=== PATIENT | female | born 1960 | race American Indian/Alaskan Native ===

== ENCOUNTER 2018-01-19 12:49 | Outpatient (CLI) | payer BC ==
--- NOTE | 2018-01-19 16:04 | XRay Report ---
FINAL REPORT EXAM: XR WRIST 3+V RT HISTORY: PAIN DUE TO FALL COMPARISON: None. TECHNIQUE: Two views of the right wrist FINDINGS: There is normal alignment without acute fracture or dislocation. The joint spaces are preserved. The overlying soft tissues are intact. IMPRESSION: No acute bony abnormality of the right wrist.
--- NOTE | 2018-01-19 16:07 | XRay Report ---
FINAL REPORT EXAM: XR HAND 3+V RT HISTORY: PAIN DUE TO FALL COMPARISON: None. TECHNIQUE: Three views of the right hand FINDINGS: There is normal alignment without acute fracture or dislocation. The joint spaces are preserved. The overlying soft tissues are intact. IMPRESSION: No acute bony abnormality of the right hand.
--- NOTE | 2018-01-19 16:25 | XRay Report ---
FINAL REPORT EXAM: XR FOOT 3+V RT HISTORY: PAIN DUE TO FALL COMPARISON: None. TECHNIQUE: Three views of the right foot FINDINGS: There is normal alignment without acute fracture or dislocation. There is mild hallux valgus deformity. The joint spaces are otherwise preserved. There is mild diffuse soft tissue swelling. IMPRESSION: No acute bony abnormality of the right foot. Mild hallux valgus deformity.
--- NOTE | 2018-01-19 17:13 | XRay Report ---
FINAL REPORT EXAM: XR KNEE 3V RT HISTORY: PAIN DUE TO FALL TECHNIQUE: 3 views of right knee. PRIORS: None. FINDINGS: Moderate medial and mild patellofemoral joint space narrowing and mild marginal spurring in all 3 joint compartments. No apparent fracture or dislocation. Soft tissues grossly unremarkable. IMPRESSION: 1. No acute osseous abnormality. 2. Degenerative changes.
== END 2018-01-19 12:50 | disposition home or self-care (01) ==
LOC: SPVIMAG 12:49
PROVIDERS: ATTEND Family Medicine Adult Medicine
DX: M17.11 Unilateral primary osteoarthritis, right knee (principal); M20.11 Hallux valgus (acquired), right foot; M25.531 Pain in right wrist; M79.641 Pain in right hand; W19.XXXA Unspecified fall, initial encounter

== ENCOUNTER 2018-12-03 14:10 | Outpatient (CLI) | payer BC ==
--- NOTE | 2018-12-03 15:40 | XRay Report ---
LEFT WRIST X-RAY, 3 VIEWS LEFT HAND X-RAY, 3 VIEWS INDICATION: Left wrist and hand pain. COMPARISON: None. IMPRESSION: Normal bone mineralization. The carpal bones are in appropriate alignment. No joint path ology or acute injury. The metacarpals and phalanges are intact. No acute osseous injury or joint pathology. There is mild soft tissue swelling on the dorsum of the hand. Signer Name: Matt Eisenberg Jr, MD Signed: 12/03/2018 3:36 PM Workstation Name: [id number]
== END 2018-12-03 14:11 | disposition home or self-care (01) ==
LOC: SPVIMAG 14:10
PROVIDERS: ATTEND Family Medicine Adult Medicine
DX: R22.32 Localized swelling, mass and lump, left upper limb (principal); M79.642 Pain in left hand; M25.532 Pain in left wrist

== ENCOUNTER 2019-03-04 14:41 | Outpatient (CLI) | payer BC ==
--- NOTE | 2019-03-08 16:27 | Mammography Report ---
DIGITAL SCREENING MAMMOGRAM WITH CAD, 03/04/2019 INDICATION: Routine screening mammography. TECHNIQUE: Digital bilateral 2D mammography was obtained in the craniocaudal and mediolateral obliq ue projections. This examination was interpreted with the benefit of Computer-Aided Detection analysi s. COMPARISON: 02/15/2018 FINDINGS: Breast Density: The breasts are almost entirely fatty. There is no evidence of dominant mass, suspicious calcifications or architectural distortion in eithe r breast. IMPRESSION: No mammographic evidence of malignancy. Follow up recommendation: Routine yearly BI-RADS Category 1: Negative. A "normal" or negative report should not discourage follow up or biopsy of a clinically significant f inding. A written summary of these findings will be mailed to the patient. The patient will be entered into a mammography reporting system which will generate a reminder letter for the patient's next appointmen t at the appropriate interval. The [employer] recommends yearly mammograms starting at age 40 and continuing as l monae as a woman is in good health. Breast MRI is recommended for women with an approximate 20-25% or greater lifetime risk of breast cancer, including women with a strong family history of breast or ova jessica cancer or who have been treated for Hodgkin's disease. Signer Name: Kd Robb MD Signed: 03/08/2019 4:23 PM Workstation Name: [id number]
== END 2019-03-04 14:42 | disposition home or self-care (01) ==
LOC: SPVWC 14:41
PROVIDERS: ATTEND Family Medicine Adult Medicine
DX: Z12.31 Encounter for screening mammogram for malignant neoplasm of breast (principal)
CPT/HCPCS: 77067

== ENCOUNTER 2019-04-28 08:09 | Outpatient (CLI) | payer BC ==
--- NOTE | 2019-04-28 10:14 | Magnetic Resonance Report ---
MRI LUMBAR SPINE WITHOUT CONTRAST INDICATION / CLINICAL INFORMATION: RIGHT LOW BACK PAIN W/SCIATICA. TECHNIQUE: Multisequence, multiplanar images of the lumbar spine were obtained. COMPARISON: None available. FINDINGS: ALIGNMENT: Normal lumbar lordosis without significant scoliosis. VERTEBRAE:There is edema involving visualized sacrum, particularly the S1 vertebral body with somewha t linear hypointensity superiorly at. This finding would be indicative of insufficiency fracture and correlation would be needed at. There are multilevel mild degenerative endplate changes without furth er edema. VISUALIZED SPINAL CORD: No significant abnormality. [id number] ANALYSIS: L1-2: There is a minimal disc bulge without significant stenosis. L2-3: There is a left foraminal disc bulge with mild left neural foraminal narrowing. L3-4: There is diffuse a disc bulge and mild facet joint hypertrophy with mild neural foraminal narro wing bilaterally. L4-5: The findings are compatible with 8mm extruded at disco fragment within the right lateral recess and proximal neural foramen at this level which displaces the exiting right L4 nerve root sheath. Mi lder from narrowing is seen on the left. L5-S1: This mild facet joint hypertrophy and neural foraminal narrowing bilaterally. PARASPINAL SOFT TISSUES: No significant abnormality. ADDITIONAL FINDINGS: No epidural collections are identified. IMPRESSION: 1. There is edema involving the S1 vertebrae compatible with fracture as detailed above. 2. There is a right lateral disc extrusion which effaces the right lateral recess and neural foramen at L4-5 with encroachment on the right L4 nerve root.. Signer Name: Tomas Hadley MD Signed: 04/28/2019 10:09 AM Workstation Name: [id number]
== END 2019-04-28 08:10 | disposition home or self-care (01) ==
LOC: SPVIMAG 08:09
PROVIDERS: ATTEND Family Medicine Adult Medicine
DX: M47.816 Spondylosis without myelopathy or radiculopathy, lumbar region (principal); M48.061 Spinal stenosis, lumbar region without neurogenic claudication; M54.41 Lumbago with sciatica, right side; R60.1 Generalized edema; M51.26 Other intervertebral disc displacement, lumbar region
CPT/HCPCS: 72148

== ENCOUNTER 2020-03-14 09:57 | Outpatient (CLI) | payer BC ==
--- NOTE | 2020-03-14 14:49 | Mammography Report ---
BILATERAL DIGITAL SCREENING MAMMOGRAM WITH CAD HISTORY: Screening mammogram. TECHNIQUE: Routine digital mammographic imaging performed. This examination was interpreted with myra pina benefit of Computer-aided Detection analysis. COMPARISON: 03/04/2019, 01/23/2016 FINDINGS: Breast Density: scattered fibroglandular appearance of the breast tissue. Digital CC and MLO views demonstrate no mammographic evidence of malignancy. IMPRESSION: No mammographic evidence of malignancy. If the clinical examination remains stable, recommend bilate ral mammogram in approximately one year. BIRADS 1: Negative. FURTHER INFORMATION: According to the [employer], yearly mammograms are recommend ed starting at age 40 and continuing as long as a woman is in good health. Clinical Breast Exams shou ld be part of a periodic health exam-about every 3 years for women in their 20s and 30s and every yea r for women 40 and over. Breast self exam is an option for women starting in their 20s. Any breast ch jj noted on a breast self exam should be reported promptly to the patient's healthcare provider. Br east MRI is recommended for women with an approximately 20-25% or greater lifetime risk of breast can cer, including women with a strong family history of breast or ovarian cancer and women who have been treated for Hodgkin's disease. A negative Mammography report should not discourage follow up or biopsy of a clinically significant f inding and/or abnormality. Dense breast tissue may obscure small neoplasms. The patient will be entered into a reminder system with a target due date for the next screening mamm ogram. Signer Name: Tomas Esposito MD Signed: 03/14/2020 2:45 PM Workstation Name: [id number]
== END 2020-03-14 09:58 | disposition home or self-care (01) ==
LOC: SPVWC 09:57
PROVIDERS: ATTEND Family Medicine Adult Medicine
DX: Z12.31 Encounter for screening mammogram for malignant neoplasm of breast (principal)
CPT/HCPCS: 77067

== ENCOUNTER 2021-03-19 14:52 | Outpatient (CLI) | payer BC ==
--- NOTE | 2021-03-19 17:01 | Mammography Report ---
DIGITAL SCREENING MAMMOGRAM WITH CAD, 03/19/2021 CLINICAL INFORMATION / INDICATION: Routine screening TECHNIQUE: Digital bilateral 2D mammography was obtained in the craniocaudal and mediolateral obliqu e projections. This examination was interpreted with the benefit of Computer-Aided Detection analysis . COMPARISON: 03/14/2020 FINDINGS: Breast Density: There are scattered areas of fibroglandular density. No dominant mass, suspicious calcifications, or architectural distortion in either breast. Mild nodularity is stable. IMPRESSION: No mammographic evidence of malignancy. Follow up recommendation: Routine yearly BI-RADS Category 2: BENIGN. A "normal" or negative report should not discourage follow up or biopsy of a clinically significant f inding. A written summary of these findings will be mailed to the patient. The patient will be entered into a mammography reporting system which will generate a reminder letter for the patient's next appointmen t at the appropriate interval. The [employer] recommends yearly mammograms starting at age 40 and continuing as l monae as a woman is in good health. Breast MRI is recommended for women with an approximate 20-25% or greater lifetime risk of breast cancer, including women with a strong family history of breast or ova jessica cancer or who have been treated for Hodgkin's disease. Signer Name: Jared Zapata MD Signed: 03/19/2021 4:56 PM Workstation Name: [id number]
== END 2021-03-19 14:53 | disposition home or self-care (01) ==
LOC: SPVWC 14:52
PROVIDERS: ATTEND Family Medicine Adult Medicine
DX: Z12.31 Encounter for screening mammogram for malignant neoplasm of breast (principal)
CPT/HCPCS: 77067